=== PATIENT | male | born 1945 | race Caucasian/White ===

== ENCOUNTER 2016-07-13 14:06 | Emergency (ER) | payer OTHER, MEDICARE ==
[2016-07-13 14:30] VITALS: BP 146/84; PULSE 68; RESP 16; TEMP 97.7; O2SAT 97
--- NOTE | 2016-07-13 14:30 | UCPHY ---
H & P Time Seen by Provider: 07/13/16 14:29 Patient Type: New HPI/ROS: Chief complaint. Smashed finger HPI. Patient is a 70-year-old female who presents about 45 minutes after helping her put a vacuum office cleaner into a box. The had the vacuum office cleaner elevate to slide down into the box. The patient was holding the rim of the box with both hands and the vacuum office cleaner came down and smashed her left hand. Initially her pain was isolated to the tip of the left 3rd finger but now seems to have spread to bother most of the fingers. She is placed her hand in ice. Patient is right handed. No other injuries ROS Constitutional. no fever/chills, no weakness Eyes. no problems with vision ENT. no sore throat, no nasal drainage Cardiovascular. no chest pain Respiratory. no shortness of breath, no cough Abdominal. no abdominal pain, no nausea/vomiting, no diarrhea . no problems urinating MS. Injury to fingers of the left hand especially the left 3rd finger Skin. no rash Lymph. no swollen glands Neuro. no headache, no dizziness, no difficulty walking or with speech Past Medical/Surgical History: Healthy Social History: , nonsmoker, no alcohol Physical Exam: General Appearance: Alert well-developed female moderate distress vital signs are stable Eyes: Pupils equal and round no pallor or injection. ENT, Mouth: Mucous membranes are moist. Respiratory: There are no retractions, lungs are clear to auscultation. Cardiovascular: Regular rate and rhythm. Gastrointestinal: Abdomen is soft and nontender, no masses, bowel sounds normal. Neurological: Awake and alert, sensory and motor exams grossly normal. Skin: Warm and dry, no rashes. Musculoskeletal: Neck is supple nontender. Extremities fingers of the left hand are examined and so no obvious swelling or deformity. The skin somewhat erythematous dull fingers as she has had an ice. She has fingernail Slov[place] on but there is no evidence of subungual hematoma. She has good movement. Distal motor vascular sensitivity is intact Psychiatric: Patient is oriented X 3, there is no agitation. Constitutional: Initial Vital Signs Temperature (C) 36.5 C 07/13/16 14:18 Heart Rate 68 07/13/16 14:18 Respiratory Rate 16 07/13/16 14:18 Blood Pressure 146/84 H 07/13/16 14:18 O2 Sat (%) 97 07/13/16 14:18 O2 Delivery Mode Room Air Allergies/Adverse Reactions: alendronate sodium [From Fosamax] Allergy (Verified 07/13/16 14:25) codeine Allergy (Verified 07/13/16 14:25) Home Medications: Medication Instructions Recorded Herbals/Supplements -Info Only 07/13/16 Hydrocodone/APAP 5/325 [[place] 1 each PO Q4-6PRN PRN #14 tab 07/13/16 5/325 (*)] MDM/Departure - MDM Diagnostics: X-ray fingers left hand interpreted by me is negative for fracture dislocation Procedures: Patient is placed in aluminum foam splint left 3rd finger for protection and pain control. Post splint application inspected by me shows good anatomic position and distal motor vascular sensitivity to be intact Medications Given: Discontinued Medications Hydrocodone Bitart/Acetaminophen ([place] 5/325) 1 tab PO EDNOW ONE Stop: 07/13/16 14:37 Last Admin: 07/13/16 14:42 Dose: 1 tab Ibuprofen (Motrin) 600 mg PO EDNOW ONE Stop: 07/13/16 14:32 Last Admin: 07/13/16 14:36 Dose: 600 mg Patient is also given hydrocodone ED Course/Re-evaluation: On reexamination patient is feeling better. Stable. The patient, her , and I discussed imaging study results, treatment plan including criteria for return importance of follow-up further evaluation. She expresses understanding and agreement Differential Diagnosis: I considered fracture, dislocation, contusion - Depart Disposition: Home, Routine, Self-Care Condition: Good Instructions: Contusion in Adults (ED) Additional Instructions: Continue ice off and on the next 24 hours. Ibuprofen 600 mg every 6 hours for discomfort. Hydrocodone in addition for discomfort. Splint on for 2-3 days for comfort. Return for worsening symptoms. Recheck 2-3 days if not improving Prescriptions: Hydrocodone/APAP 5/325 [[place] 5/325 (*)] 1 each PO Q4-6PRN PRN #14 tab PRN Reason: Pain, Moderate Referrals: Jocy Riggs, DO [Primary Care Provider] - 2-3 days, if not improved - PQRS PQRS Measurement: 134: Depression screening and followup, PRIME MD-PHQ2 (12 years and older) Over the last 2 weeks, how often have you been bothered by any of the following problems? 1. Feeling down, depressed, or hopeless? 2. Little interest or pleasure in doing things? Patient answered no to both 1 and 2 130: Documentation of medications. Reviewed all patient medications, doses, route and frequency. 226: Do you smoke? No. 47: 65 and older: Advanced care planning. Patient has advanced directive.
[2016-07-13] MEDS ORDERED: IBUPROFEN 200 MG TAB PO ONE (14:31)
[2016-07-13] MEDS ORDERED: HYDROCODONE/APAP 5/325 TAB PO ONE (14:36)
== END 2016-07-13 15:04 | disposition home or self-care (01) ==
LOC: CED 14:06
DX: S60.032A Contusion of left middle finger without damage to nail, initial encounter (principal); W22.8XXA Striking against or struck by other objects, initial encounter; Z88.5 Allergy status to narcotic agent
CPT/HCPCS: 73130; G0463; 99203-PO

== ENCOUNTER → 2016-07-24 | Outpatient (CLI) | payer OTHER, MEDICARE | LOC: CIMAGING 12:08 | DX: Z12.31 Encounter for screening mammogram for malignant neoplasm of breast (principal); Z80.3 Family history of malignant neoplasm of breast | CPT/HCPCS: G0202 ==

== ENCOUNTER → 2018-09-23 | Outpatient (CLI) | payer OTHER, MEDICARE | LOC: CIMAGING 10:31 ==

== ENCOUNTER → 2018-09-27 | Outpatient (CLI) | payer OTHER, MEDICARE | LOC: FIMAGING 13:25 ==